=== PATIENT | male | born 1960 | race African-American/Black ===

== ENCOUNTER → 2017-02-15 | Outpatient (CLI) | payer BC, OTHER ==
[~2017-02-15] VITALS: Ht 193 cm; Wt 121.6 kg
[~2017-02-15] MED LIST: ASPIR 8181 MG PO; CLARINEX-D 121 EACH PO; CLARINEX5 MG PO; FARXIGA10 MG PO; IMDUR 30 MG TAB30 M1 PO; JANUMET 50-1,01 EACH PO; JANUMET XR 50-1 EAC1 PO; LOSARTAN-HCTZ1 EACH PO; NABUMETONE 750750 M1 PO; NEXIUM40 MG PO; NITROGLYCERIN0.4 MG SUBLING; PROAIR HFA8.5 GM; RANEXA1000 MG PO; TRAMADOL 50 MG50 MG PO; UNICOMPLEX M TA1 TA1 PO
--- NOTE | ~2017-02-15 | HPC ---
[facility] [address] [place] [address] PAIN MANAGEMENT CONSULTATION Name: MARQUEZ BARR Room #: REG BRENDAN Olvera#: [id number] Admission: 02/15/17 Attend Phys: Peter Duarte DO Discharge: Date of : 58 Report #: [id number] THIS REPORT FOR: //name// CC: Pradeep Whiteside DO Peter Duarte The patient is a very pleasant 56-year-old gentleman seen in consultation at the request of Dr. Whiteside for evaluation of paresthesia, right thumb, index and long finger with episodic lancinating cervical radicular pain in the left arm. The patient notes symptoms have been present "for months." He has tried chiropractic treatment, bxpw-sya-uouceea Aleve and recently prescribed hydrocodone 7.5/[address] Whiteside with really minimal efficacy. He notes pain symptoms are constant and tender, rates them a 4-7 on a VAS. Denies any specific myelopathic symptoms. No loss of proprioception, lower extremity weakness or bowel or bladder continence changes. REVIEW OF SYSTEMS: Complete review of systems attached to chart and gone over with the patient. He is . He does not smoke or drink alcohol to excess. History of non-insulin dependent diabetes, currently treated with Januvia and Farxiga. Last hemoglobin A1c was 6.9, though he states he typically runs lower than this. He uses Claritin for some chronic rhinitis and Nexium for gastroesophageal reflux. Diagnosed with coronary artery disease in the past year, has been stable using Ranexa. He has continued to work despite pain. Pain impact score is 22 out of 70. PHYSICAL EXAMINATION: Reveals a 6 feet 4 inches, 268 pounds gentleman, weight is varied up and down, he had been up to 312 pounds, down 41 pounds over 6-9 months with dietary discretion. BMI currently is 32.6 kilograms per meter squared. Blood pressure is 139/94, pulse 96, respirations 16. Cranial nerves 2-12 are grossly intact. Pupils equal and reactive to light and accommodation. Extraocular muscles are intact. There is no nystagmus or lateral gaze deviation. Cervical range of motion is generally full flexion, exacerbates some pain, has a modestly positive Lhermitte's. Right triceps strength is diminished. All other muscle strength is symmetric. Hand grasp is good. Tinel's is negative. Deep tendon reflexes are generally preserved for the upper extremities. Heart is regular and rhythmical without murmur. Lungs are clear to auscultation. Modestly endomorphic build. Gait is tandem. Lower extremity strength is preserved. DIAGNOSTIC STUDIES: Include MRI of the cervical spine from 02/17/2016 showing left neural foraminal stenosis at C6-C7 with an HNP at this level. His symptoms are primarily right cervical radicular. ASSESSMENT: Symptomatic cervical radiculopathy by clinical exam and history, coronary artery disease by history contraindicating chronic use of nonsteroidal [address] [address] PAIN MANAGEMENT CONSULTATION Name: MARQUEZ BARR Room #: SHREYAS Olvera#: [id number] Admission: 02/15/17 Attend Phys: Peter Duarte DO Discharge: Date of : 58 Report #: [id number] anti-inflammatory medications, non-insulin dependent diabetes. RECOMMENDATION: After a long discussion with the patient today, we talked about cervical epidural injection as a possible therapeutic option. He would like to try something other than this. We have elected to trial nabumetone 750 b.i.d. for 2 weeks. If symptoms are not significantly improving with this, we will consider cervical epidural injection under fluoroscopy at that time. Thank you for allowing me to participate in the patient's care. I will keep you abreast of his progress. <ELECTRONICALLY SIGNED> By: Peter Duarte DO 02/18/17 1014 [id number] 1423 Peter Duarte DO /nt
[2017-02-15 13:25] VITALS: BP 139/94
== END | disposition home or self-care (01) ==
LOC: PAIN 07:21
DX: M54.12 Radiculopathy, cervical region (principal); M48.02 Spinal stenosis, cervical region; I25.10 Atherosclerotic heart disease of native coronary artery without angina pectoris; E11.9 Type 2 diabetes mellitus without complications; Z79.1 Long term (current) use of non-steroidal anti-inflammatories (NSAID); K21.9 Gastro-esophageal reflux disease without esophagitis; Z98.890 Other specified postprocedural states

== ENCOUNTER → 2017-03-01 | Outpatient (CLI) | payer BC, OTHER ==
[~2017-03-01] VITALS: Ht 193 cm; Wt 122.5 kg
--- NOTE | ~2017-03-01 | HPC ---
[facility] [place] [address] PAIN MANAGEMENT CONSULTATION Name: MARQUEZ BARR Lluvia Room #: REG BRENDAN Olvera#: [id number] Admission: 03/01/17 Attend Phys: Peter Duarte DO Discharge: Date of : 58 Report #: [id number] THIS REPORT FOR: //name// CC: Pradeep Duarte DATE OF SERVICE: 03/01/2017 The patient is a very pleasant 56-year-old gentleman, prior seen in consultation 02/15/2017, diagnosed with symptomatic cervical radiculopathy. We elected to proceed with conservative therapy, started the patient on Relafen 750 mg b.i.d. The patient states this unfortunately caused significant constipation. Still has ongoing cervical radicular symptoms. He is quite problematic mainly in the right arm. Rates his pain 6-7 on VAS. He wished to proceed with epidural injection under fluoroscopy today. Discussed at initial visit. We will also have the patient discontinue nabumetone and trial Aleve [id number]. He has done better with this in the past. Follow up in 1 month for reevaluate. PROCEDURE: Cervical epidural injection under fluoroscopy. PROCEDURE NOTE: After written and informed consent was obtained including risk of dural puncture, spinal cord trauma, paralysis and increased pain, the patient was taken to the fluoroscopy suite and placed in the prone position, with appropriate abdominal bolstering, neck was flexed, palms under the thighs. Skin was prepped with ChloraPrep. Sterile draping was applied. Skin wheal with 1% Xylocaine was raised. A 22-gauge 3-1/2 inch epidural Tuohy needle was placed via a midline approach at the C7-T1 interspace, advanced under biplanar fluoroscopy using continuous loss of resistance. With appropriate loss of resistance at the expected depth on lateral view, the glass loss of resistance syringe was disconnected. A low volume extension tubing was connected to the needle and a 5 mL syringe. Negative aspiration for cerebrospinal fluid or blood was noted. A 1 mL of Omnipaque was injected which showed spread within the epidural space on biplanar fluoroscopy. This was followed with 80 mg of triamcinolone plus 1 mL of 1.5% preservative Xylocaine. Needle was withdrawn to the interspinous ligament, 0.5 mL of Xylocaine was used to flush the needle. The needle was then completely withdrawn. The area was cleansed. Band-Aid was applied. The patient was allowed to move off the procedure table and ambulated to the recovery room, monitored for an appropriate period of time, discharged in good and stable condition. <ELECTRONICALLY SIGNED> By: Peter Duarte DO 03/04/17 0742 1228 [id number] Peetr Duarte DO /nt
[2017-03-01 10:53] VITALS: BP 168/58
== END ==
LOC: PAIN 06:56
DX: M54.12 Radiculopathy, cervical region (principal); Z79.82 Long term (current) use of aspirin; Z79.899 Other long term (current) drug therapy

== ENCOUNTER → 2017-05-06 | Outpatient (CLI) | payer BC, OTHER ==
[~2017-05-06] VITALS: Ht 193 cm; Wt 123.6 kg
--- NOTE | ~2017-05-06 | HPC ---
[facility] [address] [place] [address] PAIN MANAGEMENT CONSULTATION Name: MOMOMARQUEZ Lluvia Room #: REG BRENDAN Olvera#: [id number] Admission: 05/06/17 Attend Phys: Peter Duarte DO Discharge: Date of : 58 Report #: [id number] THIS REPORT FOR: //name// CC: Pradeep Duarte DATE OF SERVICE: 05/06/2017 The patient is a 56-year-old gentleman, prior treated for symptomatic cervical radiculopathy. Had single cervical epidural injection on 03/01/2017. Reports near 100% relief of left arm pain, still has some paresthesia in the right thumb and middle fingers. Also, noting exacerbation of his prior right shoulder subluxation. States he has had subluxable right shoulder since an injury in college. PHYSICAL EXAMINATION: Shows a pleasant 56-year-old gentleman. Cervical range of motion is full, modestly positive limit. Paresthesia into the right thumb and index finger. Left arm is actually fairly unremarkable. Does have a little crepitance with rotation of the right shoulder. I cannot sublux the shoulder, but patient notes that the shoulder dislocates frequently. Does have pretty good strength to resistance of the rotator cuff muscles. ASSESSMENT: 1. Symptomatic cervical radiculopathy by clinical exam and history. Good incremental improvement of baseline pain, but still has ongoing cervical radicular symptoms in the right thumb and index finger. Recommendation: Repeat cervical epidural injection under fluoroscopy today. 2. Right rotator cuff tear by history, subluxable shoulder. Recommendation: Physical Therapy for evaluation and treatment for therapeutic exercises. Follow up in 6 weeks for reevaluation, may refer to Orthopedics. If shoulder continues to be subluxable, may benefit from SLAP surgical repair. 3. Symptomatic cervical radiculopathy. PROCEDURE: Cervical epidural injection under fluoroscopy. PROCEDURE NOTE: After written and informed consent was obtained including risk of dural puncture, spinal cord trauma, paralysis and increased pain, the patient was taken to the fluoroscopy suite and placed in the prone position, with appropriate abdominal bolstering, neck was flexed, palms under the thighs. Skin was prepped with ChloraPrep. Sterile draping was applied. Skin wheal with 1% Xylocaine was raised. A 22-gauge 3-1/2 inch epidural Tuohy needle was placed via a midline approach at the C7-T1 interspace, advanced under biplanar fluoroscopy using continuous loss of resistance. With appropriate loss of resistance at the expected depth on lateral view, the glass loss of resistance syringe was disconnected. A low volume extension tubing was connected to the needle and a 5 mL syringe. Negative aspiration for cerebrospinal fluid or blood [address] [address] PAIN MANAGEMENT CONSULTATION Name: MARQUEZ BARR Room #: REG BRENDAN Olvera#: [id number] Admission: 05/06/17 Attend Phys: Peter Duarte DO Discharge: Date of : 58 Report #: [id number] was noted. A 1 mL of Omnipaque was injected which showed spread within the epidural space on biplanar fluoroscopy. This was followed with 80 mg of triamcinolone plus 1 mL of 1.5% preservative Xylocaine. Needle was withdrawn to the interspinous ligament, 0.5 mL of Xylocaine was used to flush the needle. The needle was then completely withdrawn. The area was cleansed. Band-Aid was applied. The patient was allowed to move off the procedure table and ambulated to the recovery room, monitored for an appropriate period of time, discharged in good and stable condition. By: 1211 1714 Peter Duarte DO /nt
[2017-05-06 08:13] VITALS: BP 126/87
== END | disposition home or self-care (01) ==
LOC: PAIN 07:02
DX: M54.12 Radiculopathy, cervical region (principal); G89.29 Other chronic pain; Z79.82 Long term (current) use of aspirin; Z79.899 Other long term (current) drug therapy

== ENCOUNTER → 2017-06-21 | Outpatient (CLI) | payer BC, OTHER ==
[~2017-06-21] MED LIST changes: +ALEVE220 MG PO; +NAPROSYN500 MG PO
== END ==
LOC: RAD 11:15
DX: R05 Cough (principal)

== ENCOUNTER → 2017-08-19 | Outpatient (CLI) | payer BC, OTHER ==
[~2017-08-19] MED LIST changes: -ALEVE220 MG PO; -NAPROSYN500 MG PO
== END ==
LOC: ULTRA 11:18
DX: M25.562 Pain in left knee (principal)

== ENCOUNTER → 2017-09-30 | Outpatient (CLI) | payer BC, OTHER ==
[~2017-09-30] VITALS: Ht 182.9 cm; Wt 121.6 kg
[~2017-09-30] MED LIST changes: +ALEVE220 MG PO
--- NOTE | ~2017-09-30 | HPC ---
[facility] [address] [place] [address] PAIN MANAGEMENT CONSULTATION Name: BARRMARQUEZ Lluvia Room #: REG BRENDAN Olvera#: [id number] Admission: 09/30/17 Attend Phys: Peter Duarte DO Discharge: Date of : 58 Report #: [id number] THIS REPORT FOR: //name// CC: Pardeep Duarte The patient is a very pleasant 57-year-old gentleman, has symptomatic cervical radiculopathy, prior history of right rotator cuff tear. Last seen in the pain clinic 05/06/2017. I had given a cervical epidural injection at that time, prior injection had been on 03/01/2017. Both injections afforded good relief, in fact the last injection afforded 70-80% relief for greater than 3-4 months, pain has gradually begun to recur primarily in the C6-C7 distribution right side with a little paresthesia going to left arm as well. PHYSICAL EXAMINATION: Shows positive Lhermitte's with slight decreased cervical range of motion, slight decreased right deltoid and biceps strength, triceps strength generally symmetric. Slight decreased right biceps and brachioradialis reflex compared to the left. Hand grasp is generally symmetric, though the patient has some subjective paresthesia in the index, long and middle fingers. Occasionally, he gets some lancinating symptoms on the left arm. ASSESSMENT: Symptomatic cervical radiculopathy by clinical exam and history, he has had good relief following prior injections, the symptoms have begun to recur. RECOMMENDATIONS: Repeat epidural injection under fluoroscopy today (C7-T1). Follow up in 2 weeks for evaluation. If he is doing well, we will have him cancel; if he has only transient or partial improvement in symptoms, we will plan on repeating injection at 30 days and follow up with a neurosurgeon. We may need to get a newer MRI at that time. PROCEDURE: Cervical epidural injection under fluoroscopy. PROCEDURE NOTE: After written and informed consent was obtained including risk of dural puncture, spinal cord trauma, paralysis and increased pain, the patient was taken to the fluoroscopy suite and placed in the prone position, with appropriate abdominal bolstering, neck was flexed, palms under the thighs. Skin was prepped with ChloraPrep. Sterile draping was applied. Skin wheal with 1% Xylocaine was raised. A 22-gauge 3-1/2 inch epidural Tuohy needle was placed via a midline approach at the C7-T1 interspace, advanced under biplanar fluoroscopy using continuous loss of resistance. With appropriate loss of resistance at the expected depth on lateral view, the glass loss of resistance syringe was disconnected. A low volume extension tubing was connected to the needle and a 5 mL syringe. Negative aspiration for cerebrospinal fluid or blood was noted. A 1 mL of Omnipaque was injected which showed spread within the epidural space on biplanar fluoroscopy. This was followed with 80 mg of triamcinolone plus 1 mL of 1.5% preservative Xylocaine. Needle was withdrawn to [address] [address] PAIN MANAGEMENT CONSULTATION Name: MARQUEZ BARR Room #: REG BRENDAN Olvera#: [id number] Admission: 09/30/17 Attend Phys: Peter Duarte DO Discharge: Date of : 58 Report #: [id number] the interspinous ligament, 0.5 mL of Xylocaine was used to flush the needle. The needle was then completely withdrawn. The area was cleansed. Band-Aid was applied. The patient was allowed to move off the procedure table and ambulated to the recovery room, monitored for an appropriate period of time, discharged in good and stable condition. By: 0906 1439 Peter Duarte DO /nt
[2017-09-30 08:21] VITALS: BP 126/79
== END | disposition home or self-care (01) ==
LOC: PAIN 06:57
DX: M54.12 Radiculopathy, cervical region (principal); G89.29 Other chronic pain; Z98.890 Other specified postprocedural states; Z79.82 Long term (current) use of aspirin; Z79.899 Other long term (current) drug therapy

== ENCOUNTER → 2017-10-17 | Outpatient (CLI) | payer BC, OTHER ==
[~2017-10-17] VITALS: Ht 193 cm; Wt 120.7 kg
--- NOTE | ~2017-10-17 | HPC ---
[facility] [address] [employer] [place] [address] PAIN MANAGEMENT CONSULTATION Name: BARRMARQUEZ Lluvia Room #: REG BRENDAN Olvera#: [id number] Admission: 10/17/17 Attend Phys: Peter Duarte DO Discharge: Date of : 58 Report #: [id number] THIS REPORT FOR: //name// CC: Pradeep Duarte The patient is an extremely pleasant 57-year-old gentleman, being treated for symptomatic cervical radiculopathy. He was given a single cervical epidural injection on 09/30/2017. He noted about 50% improvement of pain; however, pain has recurred. He still has paresthesia in the right arm, primarily in the C6-C7 distribution with paresthesia in the distal aspect of the right long finger. The patient does have diabetes, hemoglobin A1c last tested about 6.5. Notes no significant changes immediately following the injection. PHYSICAL EXAMINATION: Shows a 57-year-old gentleman, 6 feet 4 inches, 266 pounds, BMI is 32.4 kg/m2. Blood pressure 135/83, pulse 91, respirations 16. Subjective pain score is 7 on a VAS. Cervical range of motion is modestly limited. He does have some paresthesia with cervical extension (positive Lhermitte's) radiating to the right hand. Slight decreased right biceps and deltoid strength (prior history of right rotator cuff injury may be attributable to the deltoid weakness). Hand grasp is symmetric, subjective paresthesia in the middle and a little bit in the ulnar aspect of the index finger. DIAGNOSTIC STUDIES: From 02/17/2016, cervical MRI notes multilevel neural foraminal stenosis, most prominent at C6-C7 where there is left neural foraminal stenosis, primary symptoms are right-sided. He does have moderate right neural foraminal narrowing at C5-C6 ([id number] in the left side at this level). ASSESSMENT: Symptomatic cervical radiculopathy by clinical exam and history corroborated with diagnostic findings. Incremental improvement following epidural injection, he has had good relief with 2 epidural injections in the fall of 2016. RECOMMENDATION: We will plan on repeating cervical epidural injection at next visit, 30 days after his last injection, which was 09/30/2017. Discharged in good and stable condition. <ELECTRONICALLY SIGNED> By: Peter Duarte DO 10/18/17 0656 0836 1117 Peter Duarte DO /nt
[2017-10-17 07:58] VITALS: BP 135/83
== END ==
LOC: PAIN 06:57
DX: M54.12 Radiculopathy, cervical region (principal)

== ENCOUNTER → 2017-11-04 | Outpatient (CLI) | payer BC, OTHER ==
[~2017-11-04] VITALS: Ht 193 cm; Wt 118.1 kg
[~2017-11-04] MED LIST changes: +NAPROSYN500 MG PO
--- NOTE | ~2017-11-04 | HPC ---
[facility] [address] [place] [address] PAIN MANAGEMENT CONSULTATION Name: BARRMARQUEZ Lluvia Room #: REG BRENDAN Olvera#: [id number] Admission: 11/04/17 Attend Phys: Peter Duarte DO Discharge: Date of : 58 Report #: [id number] THIS REPORT FOR: //name// CC: Pradeep Duarte The patient is a very pleasant 57-year-old gentleman being treated for symptomatic cervical radiculopathy. Last seen in pain clinic and had incremental improvement (50%) following cervical epidural injection under fluoroscopy (DANIEL #2). Noted still has paresthesia in the right arm in a C6-C7 distribution with paresthesia going into the right index finger, some loss of proprioception here. He returns to pain clinic today for a repeat epidural injection under fluoroscopy. He still has diminished hand grasp in the right hand about 3-4/5 versus much stronger zigzag topstitcher on the left 4/5. Decreased 2-point discrimination in the distal pad of the right thumb and index finger. Hand grasp, right, again is diminished. Modestly positive Lhermitte's. ASSESSMENT: Symptomatic cervical radiculopathy by clinical exam and history, 50% relief following 2 cervical epidural injections. Correlating with MRI from 02/17/2016, noting severe left neural foraminal stenosis with paracentral disk at this level. Again, symptoms are primarily right radicular. RECOMMENDATION: Cervical epidural injection under fluoroscopy today, EMG of the bilateral upper extremity if symptoms do not savita with current intervention. We will refer to Dr. Barney for evaluation for possible other area of nerve entrapment versus diabetic peripheral neuropathy, though his hemoglobin A1c have been remarkably stable. PROCEDURE: Cervical epidural injection under fluoroscopy. PROCEDURE NOTE: After written and informed consent was obtained including risk of dural puncture, spinal cord trauma, paralysis and increased pain, the patient was taken to the fluoroscopy suite and placed in the prone position, with appropriate abdominal bolstering, neck was flexed, palms under the thighs. Skin was prepped with ChloraPrep. Sterile draping was applied. Skin wheal with 1% Xylocaine was raised. A 22-gauge 3-1/2 inch epidural Tuohy needle was placed via a midline approach at the C7-T1 interspace, advanced under biplanar fluoroscopy using continuous loss of resistance. With appropriate loss of resistance at the expected depth on lateral view, the glass loss of resistance syringe was disconnected. A low volume extension tubing was connected to the needle and a 5 mL syringe. Negative aspiration for cerebrospinal fluid or blood was noted. A 1 mL of Omnipaque was injected which showed spread within the epidural space on biplanar fluoroscopy. This was followed with 80 mg of triamcinolone plus 1 mL of 1.5% preservative Xylocaine. Needle was withdrawn to the interspinous ligament, 0.5 mL of Xylocaine was used to flush the needle. The needle was then completely withdrawn. The area was cleansed. Band-Aid was applied. The patient was allowed to move off the procedure table and ambulated [address] [address] PAIN MANAGEMENT CONSULTATION Name: MARQUEZ BARR Room #: REG BRENDAN Olvera#: [id number] Admission: 11/04/17 Attend Phys: Peter Duarte, Discharge: Date of : 58 Report #: [id number] to the recovery room, monitored for an appropriate period of time, discharged in good and stable condition. <ELECTRONICALLY SIGNED> By: Peter Duarte DO 11/07/17 0805 1229 1739 Peter Duarte DO /nt
[2017-11-04 08:47] VITALS: BP 129/81
== END | disposition home or self-care (01) ==
LOC: PAIN 11-01 06:42
DX: M54.12 Radiculopathy, cervical region (principal); G89.29 Other chronic pain; Z98.890 Other specified postprocedural states; Z79.82 Long term (current) use of aspirin; Z79.899 Other long term (current) drug therapy

== ENCOUNTER → 2020-04-12 | Outpatient (CLI) | payer BC, OTHER | LOC: SJCVCIMAG 09:41 | PROVIDERS: ATTEND Internal Medicine | DX: I07.1 Rheumatic tricuspid insufficiency (principal); I48.0 Paroxysmal atrial fibrillation; E11.9 Type 2 diabetes mellitus without complications ==

== ENCOUNTER → 2020-05-04 | Outpatient (CLI) | payer BC, OTHER ==
[~2020-05-04] MED LIST changes: +ESOMEPRAZOLE MA40 MG PO; +METFORMIN HCL1000 MG PO; +PROAIR HFA8.5 GM INH; +TRULICITY1.5 MG/0.5 SUBQ; +VALSARTAN-HCTZ1 EACH PO
== END ==
LOC: LAB 10:53
PROVIDERS: ATTEND Orthopaedic Surgery
DX: Z01.812 Encounter for preprocedural laboratory examination (principal); Z20.828 Contact with and (suspected) exposure to other viral communicable diseases

== ENCOUNTER 2020-05-09 07:56 | Inpatient (IN) | payer BC, OTHER ==
[2020-04-26 09:18] LABS: URINE BILIRUBIN NEGATIVE (Negative); URINE BLOOD NEGATIVE (Negative); URINE CLARITY CLEAR; URINE COLOR YELLOW; URINE GLUCOSE-RANDOM* 3+ (Negative); URINE KETONES NEGATIVE (Negative); URINE LEUKOCYTES-REFLEX NEGATIVE (Negative); URINE NITRITE-REFLEX NEGATIVE (Negative); URINE PROTEIN (DIPSTICK) NEGATIVE (Negative); URINE UROBILINOGEN 0.2 E.U./dl (0.2-1.0)
[~2020-05-09] VITALS: Ht 190.5 cm; Wt 113.9 kg
[2020-05-09 09:00] VITALS: BP 143/86
[2020-05-09 13:37] VITALS: BP 133/85
[2020-05-09 16:57] VITALS: BP 133/85
[2020-05-09 19:59] VITALS: BP 122/81
[2020-05-10 04:51] VITALS: BP 120/79
[2020-05-10 04:56] LABS: HEMATOCRIT 38.7 % (42.0-52.0); HEMOGLOBIN 13.1 gm/dL (14.0-18.0); MCHC 33.8 g/dL (28.0-37.0); MCV 91.7 fL (80.0-100.0); RBC 4.22 mil/uL (4.50-6.00); RDW 12.7 % (10.5-14.5); WBC 8.7 thou/uL (4.0-11.0)
--- NOTE | 2020-05-10 05:06 | NUR ---
ASSUMED CARE OF PT @2100 PT A&OX4. RATES PAIN 07/27. MANAGED WITH PO PAIN PILL. HEMOVAC OUTPUT DRAINED 250CC. IV INTACT WITH FLUIDS INFUSING. RT HIP DRESSING C/D/I. ICE PACK IN PLACE. SCD'S, TEDHOSE ON JORJE LOWER EXT. FALL PREC IN PLACE AND CALL LIGHT AT REACH WILL CONT WITH POC TILL EOS.
[2020-05-10 07:40] VITALS: BP 115/77
--- NOTE | 2020-05-10 08:08 | O ---
[facility] [place] [address] OPERATIVE REPORT Name: MARQUEZ CAMERON Room #: 442-P ADM IN M.R.#: [id number] Admission: 05/09/20 Attend Phys: Sim Givens MD Discharge: Date of : 58 Report #: [id number] THIS REPORT FOR: cc: Pradeep Whiteside James A. DO Clymer, David J. MD ~ DATE OF SERVICE: 05/09/2020 PREOPERATIVE DIAGNOSIS: End-stage degenerative arthritis, right hip. POSTOPERATIVE DIAGNOSIS: End-stage degenerative arthritis, right hip. PROCEDURE: Right total hip arthroplasty. SURGEON: Sim Givens MD INDICATIONS: This 59-year-old gentleman complains of severe progressive right hip pain. Clinical exam and x-rays confirm rather severe end-stage degenerative arthritis. He has tried conservative measure without much success. He has decided to go ahead with total hip replacement. DESCRIPTION OF PROCEDURE: The patient was taken to the operating room where he was placed under general anesthesia. Prophylactic intravenous antibiotics were administered. He was turned to the left lateral decubitus position. The right hip, thigh and leg were meticulously prepped and draped. A slightly curving posterolateral skin incision was made centered over the greater trochanter. This was carried through fascia and gluteus was spread bluntly. The short external rotators and capsule were taken down and preserved and tagged with several #1 FiberWire sutures. The hip was dislocated posteriorly and marked degenerative change on the femoral head and acetabulum was noted. A femoral neck osteotomy was performed. The canal was prepared using the Cameron and Nephew hip system. A size 13 Synergy stem trial fit nicely. The calcar was trimmed down to an appropriate level. The trial was removed and attention directed to the acetabulum. Satisfactory exposure was established and the acetabulum was sequentially reamed, gradually advancing to a 56 mm reamer. A Cameron and Nephew size 56, 3-hole StikTite shell was then inserted. This was placed in alignment with his true acetabulum, positioning this in about 45 degrees off of vertical and 20 degrees of anteversion. It seated nicely and appeared to be secure. In addition, 3 cancellous screws were placed through the apical holes engaging good periacetabular bone with good purchase and additional stability. A polyethylene liner was then inserted, placing the 20-degree elevated rim at about the 10 o'clock posterior position. It also seated nicely and appeared to be secure. The permanent Cameron and Nephew size 13 Synergy porous high offset femoral stem was then inserted. This was placed in about 15-20 degrees of anteversion. It seated nicely and appeared to be secure. A trial reduction was performed and [address] [address] OPERATIVE REPORT Name: MARQUEZ CAMERON Room #: 442-P [facility] IN .R.#: [id number] Admission: 05/09/20 Attend Phys: Sim Givens MD Discharge: Date of : 58 Report #: [id number] the hip seemed best suited for a size 40 head using a +4 mm neck length. This resulted in satisfactory alignment, range of motion, stability and leg length. The trial head was removed and the permanent Cameron and Nephew Oxinium size 40 head with +4 mm neck length was then selected. This was impacted on the Spaulding taper. The hip was once again reduced and again alignment, range of motion, stability and leg length were assessed and felt to be satisfactory. The short external rotators and capsule were repaired back to bone using #1 FiberWire sutures passed through small drill holes in greater trochanter, this added nicely to a hip stability. A single Hemovac was left in the wound exiting through a separate stab incision. The fascia was closed with multiple #1 Vicryl sutures. The subcutaneous tissues were closed with 4-0 Monocryl. The skin was closed with skin bharati. A sterile dressing was applied. The patient was awakened and returned to recovery room in good condition. <ELECTRONICALLY SIGNED> By: Sim Givens MD 05/10/20 0808 1124 1132 Sim Givens MD /nt
[2020-05-10 09:26] LABS: CALCIUM 8.9 mg/dL (8.5-10.1); MAGNESIUM 1.9 mg/dL (1.8-2.4); POTASSIUM 4.5 mmol/L (3.5-5.1)
--- NOTE | 2020-05-10 11:18 | NUR ---
Assumed care of pt at 0700. a&ox4. Pain controlled with prn pain meds. Dressing c/d/i. Hemovac drain removed. Pt worked with physical therapy and got dizzy while walking. LAMONTE radha and SCDs in place. Call light within reach. Fall precautions in place. Will continue to monitor.
--- NOTE | 2020-05-10 12:10 | NUR ---
PT ADMITTED RELATED TO RT TOTAL HIP REPLACEMENT. CM REVIEWED CHART AND SPOKE WITH CARE TEAM. CM MET WITH PT AT BEDSIDE THIS DAY. PT WAS A&0 X4. CM ROLE INTRODUCED. PT INDICATED HE RESIDES IN A HOUSE WITH HIS SPOUSE WITH 8 STEPS TO REACH MAIN LEVEL THROUGH GARAGE AND 8 STEPS TO BEDROOMS. 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 PT WAS ISSUED A FWW FOR HOME USE BY PROVIDER PLUS. IT IS ANTICIPATED THAT PT WILL DC HOME TOMORROW. CM TO FOLLOWAS INDICATED WITH DC PLANNING.
[2020-05-10 15:35] VITALS: BP 118/78
[2020-05-10 19:30] VITALS: BP 143/99
[2020-05-11 05:56] LABS: HEMATOCRIT 37.7 % (42.0-52.0); HEMOGLOBIN 12.7 gm/dL (14.0-18.0); MCH 30.9 pg (26.0-34.0); MCHC 33.7 g/dL (28.0-37.0); MCV 91.5 fL (80.0-100.0); RBC 4.12 mil/uL (4.50-6.00); RDW 12.7 % (10.5-14.5); WBC 8.2 thou/uL (4.0-11.0)
--- NOTE | 2020-05-11 07:52 | NUR ---
PROGRESS PT UP WITH GB AND WALKER INCISION TO RIGHT HIP INTACT WITH BOX STILL BLINKING . TAKING HYDROCODONE SPARINGLY VOIDING QS HAD A BM THIS AM EATING WITHOUT DIFFICULTY. POSSIBLE DC HOME TODAY.
[2020-05-11 08:00] VITALS: BP 131/84
--- NOTE | 2020-05-11 08:23 | NUR ---
DR BLANCA HERE STATES PATIENT MAY GO HOME AFTER THERAPY IF PATIENT THINKS HE IS READY OTHERWISE CAN GO SATURDAY PT UP IN BEDSIDE CHAIR GIVEN AM MEDS INCLUDING PRN PAIN MED THAT WAS REQUESTED.
[2020-05-11 09:50] VITALS: BP 131/84
[2020-05-11 13:25] VITALS: BP 131/84
--- NOTE | 2020-05-11 13:52 | NUR ---
DCing home today with plan for outpt therapy. FWW issued per provider plus liason for home use. No other needs.
--- NOTE | 2020-05-11 14:15 | NUR ---
DISCHARGE PAPERS REVIEWED AT THIS TIME. SIGNED AND COPY IN CHART. IV ACSESS DCD. PT HAD WALKER DELIVERED WILL GO WITH HIM. ALL BELONGINGS PACKED AND TO BE SENT WITH PATIENT. PT W/O PAIN OR RESP DISTRESS. PT WAS GIVEN RX'S AT PRE-OP APPT.
--- NOTE | 2020-05-11 15:21 | NUR ---
PATIENT TAKEN TO ER ENTRANCE VIA W/C TO DISCHARGE TO HOME WITH . ALL BELONINGS SENT WITH PATIENT. PT W/O PAIN OR RESP DISTRESS AT DISCHARGE
[2020-05-11 15:35] VITALS: BP 131/84
--- NOTE | 2020-05-12 08:24 | D ---
[facility] [place] [address] DISCHARGE SUMMARY Name: MARQUEZ BARR Room #: 442-P [facility] IN M.R.#: [id number] Admission: 05/09/20 Attend Phys: Sim Givens MD Discharge: 05/11/20 Date of : 58 Report #: [id number] THIS REPORT FOR: cc: Pradeep Whiteside James A. DO Clymer, David J. MD ~ DATE OF SERVICE: 05/11/2020 FINAL DIAGNOSIS: End-stage degenerative arthritis, right hip. OPERATION PROCEDURES: Right total hip arthroplasty. HISTORY OF PRESENT ILLNESS: This 59-year-old gentleman presents with chronic progressive right hip pain. Clinical and radiographic findings are consistent with moderately severe degenerative arthritis. He has tried conservative measures without benefit and has elected to go ahead with right total hip replacement. HOSPITAL COURSE: The patient was admitted and taken to the operating room on 05/09/2020. He underwent right total hip arthroplasty, which he tolerated quite nicely. Postoperatively, his course was largely unremarkable, although he did have a moderate amount of discomfort, making progress with therapy difficult and slow. The dressing has remained dry. The Hemovac output was minimal and the drain was removed. He was able to resume a regular diet, although he did have moderate nausea in the first 24 hours, making that difficult. That did resolve and he was able to move off of IV fluids on to a regular diet without too much difficulty on the second today. He did start with physical therapy, but had a good deal of discomfort and difficulty initially. He managed this with pain medications, but this also caused some nausea. Today, he seems to be making much better progress and seems to be on course toward independent ambulation using a walker for balance and safety. Pending his continued progress, our plan is for discharge home today on 05/11/2020. DISCHARGE MEDICATIONS: Include Xarelto 10 mg daily and hydrocodone 10 mg q.4-6 hours p.r.n. for pain. He will continue on his other routine medications, which include medical management for his type 2 diabetes. He will call me if there are any problems or questions. He will continue with gentle independent activity and exercise at home over the coming week or two. I will plan to see him back in my office in 10-14 days and would anticipate suture [address] [id number] DISCHARGE SUMMARY Name: MOMOMARQUEZ Lluvia Room #: 442-P [facility] IN .R.#: [id number] Admission: 05/09/20 Attend Phys: Sim Givens MD Discharge: 05/11/20 Date of : 58 Report #: [id number] removal and advancing activities at that time. He is instructed to call or come in sooner should there be any problems or questions. <ELECTRONICALLY SIGNED> By: Sim Givens MD 05/12/20 [id number] Sim Givens MD /anabel
== END 2020-05-11 15:00 | disposition home or self-care (01) | DRG 470 ==
LOC: OR 07:56 → TBA 07:56 → OR 08:19 → 4S 13:33 → OR 13:33 → 4S 13:34 → OR 15:12 → 4S 05-11 15:00
PROVIDERS: ADMIT Orthopaedic Surgery; ATTEND Orthopaedic Surgery
PROC: 0SR906Z Replacement of Right Hip Joint with Oxidized Zirconium on Polyethylene Synthetic Substitute, Open Approach (ICD-10-PCS; principal; 2020-05-09)
DX: M16.11 Unilateral primary osteoarthritis, right hip (principal); I10 Essential (primary) hypertension; E11.9 Type 2 diabetes mellitus without complications; K21.9 Gastro-esophageal reflux disease without esophagitis; G47.33 Obstructive sleep apnea (adult) (pediatric); Z79.82 Long term (current) use of aspirin; Z79.899 Other long term (current) drug therapy
CPT/HCPCS: 10195; 50010; 50101; 50382; 50414; 51412; 53000; 56521; 56525; 56530; 57095; 57103; 62110; 62900; 70005

== ENCOUNTER → 2021-04-21 | Outpatient (CLI) | payer BC, OTHER | LOC: ULTRA 07:44 | PROVIDERS: ATTEND Family Medicine | DX: K76.0 Fatty (change of) liver, not elsewhere classified (principal); K86.89 Other specified diseases of pancreas ==